=== PATIENT | male | born 1995 | race Caucasian/White ===

== ENCOUNTER 2021-04-16 18:48 | Emergency (ER) | payer BC, OTHER ==
[2021-04-16] MEDS ORDERED: ACETAMINOPHEN TAB 500 MG TAB PO STA (20:03)
[2021-04-16] MEDS ORDERED: DIPH,PERTUS(ACELL)TETVAC-LF 0.5 ML VIAL IM ONE (20:05)
--- NOTE | 2021-04-16 20:06 | XR ---
EXAMINATION TYPE: XR finger LT DATE OF EXAM: 04/16/2021 COMPARISON: NONE HISTORY: Laceration TECHNIQUE: 3 views FINDINGS: I see no fracture nor dislocation. There is some bandages obscuring the tip of the index fi nger. IMPRESSION: No bony abnormality. No evidence of a foreign body.
--- NOTE | 2021-04-16 20:10 | ED ---
General Adult HPI - General Stated complaint: left index tip of finger injury,table saw Time Seen by Provider: 04/16/21 20:03 Source: patient, RN notes reviewed Mode of arrival: ambulatory Limitations: no limitations - History of Present Illness Initial comments: This a 25-year-old male presents for Department chief complaint laceration to his right hand index finger. Patient states that he ran into a table saw. Patient states that his tetanus is not up-to-date. Patient has mild bleeding, nail involvement of his injury. Patient offers no associated complaints. - Related Data Previous Rx's Medication Instructions Recorded Cephalexin [Keflex] 500 mg PO Q6HR #28 cap 04/16/21 Allergies Allergy/AdvReac Type Severity Reaction Status Date / Time No Known Allergies Allergy Verified 04/16/21 20:12 Review of Systems ROS Statement: Those systems with pertinent positive or pertinent negative responses have been documented in the HPI. ROS Other: All systems not noted in ROS Statement are negative. Past Medical History Past Medical History: No Reported History History of Any Multi-Drug Resistant Organisms: None Reported Past Surgical History: No Surgical Hx Reported Past Psychological History: No Psychological Hx Reported Past Alcohol Use History: None Reported Past Drug Use History: None Reported General Exam General appearance: alert, in no apparent distress Head exam: Present: atraumatic, normocephalic, normal inspection Eye exam: Present: normal appearance, PERRL, EOMI. Absent: scleral icterus, conjunctival injection, periorbital swelling Neck exam: Present: normal inspection. Absent: tenderness, meningismus, lymphadenopathy Respiratory exam: Present: normal lung sounds bilaterally. Absent: respiratory distress, wheezes, rales, rhonchi, stridor Cardiovascular Exam: Present: regular rate, normal rhythm, normal heart sounds. Absent: systolic murmur, diastolic murmur, rubs, gallop, clicks Extremities exam: Present: other (Laceration on the index finger of the left hand) Neurological exam: Present: alert Skin exam: Present: warm, dry, intact, normal color. Absent: rash Course Vital Signs 04/16/21 20:12 Temperature 97.7 F Pulse Rate 89 Respiratory 18 Rate Blood Pressure 148/87 O2 Sat by Pulse 98 Oximetry Procedures - Procedures Initial comment: Left hand index finger laceration was cleaned, skin was revised. No closure needed. Medical Decision Making - Medical Decision Making X-rays - tetanus was updated. Patient's wound was cleaned, advised follow-up with hand surgery. Disposition Clinical Impression: Finger laceration, Skin avulsion Disposition: HOME SELF-CARE Condition: Stable Instructions (If sedation given, give patient instructions): Skin Avulsion (ED) Additional Instructions: Please return to the Emergency Department if symptoms worsen or any other concerns. Prescriptions: Cephalexin [Keflex] 500 mg PO Q6HR #28 cap Is patient prescribed a controlled substance at d/c from ED?: No Referrals: Nonstaff,Physician [Primary Care Provider] - 1-2 days Percy Boyd DO [Doctor of Osteopathic Medicine] - 1-2 days Agnes Recinos DO [Doctor of Osteopathic Medicine] - 1-2 days Time of Disposition: 20:32
[2021-04-16 20:14] VITALS: BP 148/87; PULSE 89; RESP 18; TEMP 97.7
[2021-04-16] MEDS ORDERED: CEPHALEXIN 500MG STARTER PACK 4 CAP BTL PO STA (20:30)
== END 2021-04-16 20:50 | disposition home or self-care (01) ==
LOC: EC 18:48
DX: S61.211A Laceration without foreign body of left index finger without damage to nail, initial encounter (principal); W27.0XXA Contact with workbench tool, initial encounter
CPT/HCPCS: 90471; 90715; 99283